=== PATIENT | female | born 2000 | race American Indian/Alaskan Native ===

== ENCOUNTER 2024-07-25 06:52 | Emergency (ER) | payer SELFPAY ==
[2024-07-25] MEDS: Bacitracin Oint 1 GM U/D Packet TOP ONE (07:37)
[2024-07-25] MEDS: Diphtheria,Pertussis(Acell),Tetanus Vaccine 0.5 ML Syringe IM ONE (07:37)
== END 2024-07-25 07:59 | disposition home or self-care (01) ==
LOC: JP.ED 06:52
DX: S61.216A Laceration without foreign body of right little finger without damage to nail, initial encounter (principal); Z23 Encounter for immunization; Z88.0 Allergy status to penicillin; W25.XXXA Contact with sharp glass, initial encounter
CPT/HCPCS: 12001; 90471; 90715; 99282-25